=== PATIENT | male | born 1995 | race Caucasian/White ===

== ENCOUNTER 2017-08-30 18:39 | Emergency (ER) | payer MEDICAID ==
[~2017-08-30] VITALS: Ht 172.7 cm; Wt 95.0 kg
[~2017-08-30 18:39] MED LIST: AMOXICILLIN; IBUPROFEN
[2017-08-30 18:58] VITALS: BP 148/94
== END 2017-08-30 23:00 | disposition left against medical advice (07) ==
LOC: ER 19:27
DX: R06.02 Shortness of breath (principal); Z53.21 Procedure and treatment not carried out due to patient leaving prior to being seen by health care provider

== ENCOUNTER 2019-06-19 19:48 | Emergency (ER) | payer MEDICAID | END 2019-06-19 22:11 | disposition left against medical advice (07) | LOC: ER 19:48 | DX: Z53.21 Procedure and treatment not carried out due to patient leaving prior to being seen by health care provider (principal) ==

== ENCOUNTER 2021-04-18 02:55 | Emergency (ER) | payer MEDICAID ==
[~2021-04-18] VITALS: Ht 170.2 cm; Wt 100.0 kg
[2021-04-18] MEDS ORDERED: LEVETIRACETAM 500MG PREMIX 100 ML IV ONE (03:30)
[2021-04-18 04:02] LABS: BASOPHILS % 0.9 % (0.0-2.0); EOSINOPHILS % 5.1 % (0.0-5.0); HEMATOCRIT. 48.3 % (42.0-52.0); HEMOGLOBIN. 16.6 g/dL (14.0-18.0); LYMPHOCYTES % 14.9 % (20.0-50.0); MEAN CORPUSCULAR VOLUME 87.3 fL (80.0-94.0); MEAN PLATELET VOLUME 8.4 fl (7.4-10.4); NEUTROPHILS % 73.1 % (40.0-76.0); PLATELET 339 x1000/uL (130-400); RED BLOOD CELL COUNT 5.53 mill/uL (4.7-6.1); RED CELL DISTRIBUTION WIDTH 12.7 % (11.6-14.6)
[2021-04-18 04:04] LABS: CHLORIDE 105 mEq/L (98-107)
[2021-04-18 04:08] LABS: ETHANOL BLOOD < 10 mg/dL
[2021-04-18 06:01] LABS: *AMPHETAMINES SCREEN URINE NEGATIVE (NEGATIVE); *BARBITURATES SCREEN URINE NEGATIVE (NEGATIVE); *BENZODIAZEPINES SCREEN URINE NEGATIVE (NEGATIVE); *COCAINE SCREEN URINE NEGATIVE (NEGATIVE); METHADONE URINE SCREEN NEGATIVE (NEGATIVE)
[2021-04-18 06:02] LABS: CANNABINOID URINE SCREEN PRESUMTIVE POSITIVE (NEGATIVE); OPIATES URINE SCREEN NEGATIVE (NEGATIVE); PHENCYCLIDINE URINE SCREEN NEGATIVE (NEGATIVE)
[2021-04-18] MEDS ORDERED: LORAZEPAM 2MG/ML CPJ IV ONE (07:00)
[2021-04-18] MEDS ORDERED: LEVETIRACETAM 1000MG PREMIX 100 ML IV ONE (07:15)
[2021-04-18 13:33] VITALS: BP 111/80
== END 2021-04-18 14:00 | disposition home or self-care (01) ==
LOC: ER 02:55
DX: R56.9 Unspecified convulsions (principal); R94.31 Abnormal electrocardiogram [ECG] [EKG]; F12.10 Cannabis abuse, uncomplicated
CPT/HCPCS: 36415; 71045; 80053; 80305; 80320; 83880; 84484; 85025; 93005; 96365; 96366; 96375; 99285; J1953; J2060; G0480

== ENCOUNTER 2021-05-10 06:31 | Emergency (ER) | payer MEDICAID ==
[~2021-05-10] VITALS: Ht 170.2 cm; Wt 106.0 kg
[2021-05-10] MEDS ORDERED: LEVETIRACETAM 500MG PREMIX 100 ML IV ONE (07:15)
[2021-05-10 07:45] LABS: BASOPHILS % 0.6 % (0.0-2.0); CHLORIDE 107 mEq/L (98-107); EOSINOPHILS % 4.6 % (0.0-5.0); HEMATOCRIT. 45.7 % (42.0-52.0); HEMOGLOBIN. 15.5 g/dL (14.0-18.0); LYMPHOCYTES % 11.8 % (20.0-50.0); MEAN CORPUSCULAR HEMOGLOBIN 29.4 pg (28.0-32.0); MEAN CORPUSCULAR VOLUME 86.7 fL (80.0-94.0); MEAN PLATELET VOLUME 8.3 fl (7.4-10.4); MONOCYTES % 5.6 % (2.0-8.0); NEUTROPHILS % 77.4 % (40.0-76.0); PLATELET 277 x1000/uL (130-400); RED BLOOD CELL COUNT 5.27 mill/uL (4.7-6.1); RED CELL DISTRIBUTION WIDTH 12.7 % (11.6-14.6)
[2021-05-10 07:49] LABS: ETHANOL BLOOD < 10 mg/dL
[2021-05-10] MEDS ORDERED: IBUPROFEN 600MG TABLET PO ONE (08:45)
[2021-05-10] MEDS ORDERED: ACETAMINOPHEN 325MG TABLET PO ONE (09:00)
[2021-05-10] MEDS ORDERED: LEVE750T4 MT (10:00)
[2021-05-10 10:04] LABS: CLARITY URINE CLEAR (CLEAR); COLOR URINE YELLOW (YELLOW); KETONES URINE NEGATIVE (NEGATIVE); LEUKOCYTE ESTERASE URINE NEGATIVE (NEGATIVE); NITRITE URINE NEGATIVE (NEGATIVE); OCCULT BLOOD URINE TRACE (NEGATIVE); PROTEIN URINE TRACE (NEGATIVE); SPECIFIC GRAVITY URINE 1.014 (1.005-1.030); UROBILINOGEN URINE 0.2 E.U./dL (0.2-1.0)
[2021-05-10 10:27] LABS: *COCAINE SCREEN URINE NEGATIVE (NEGATIVE); METHADONE URINE SCREEN NEGATIVE (NEGATIVE); OPIATES URINE SCREEN NEGATIVE (NEGATIVE)
[2021-05-10 10:28] LABS: *AMPHETAMINES SCREEN URINE NEGATIVE (NEGATIVE); *BARBITURATES SCREEN URINE NEGATIVE (NEGATIVE); *BENZODIAZEPINES SCREEN URINE NEGATIVE (NEGATIVE); CANNABINOID URINE SCREEN PRESUMTIVE POSITIVE (NEGATIVE); PHENCYCLIDINE URINE SCREEN NEGATIVE (NEGATIVE)
[2021-05-10 11:26] VITALS: BP 101/48
== END 2021-05-10 11:42 | disposition home or self-care (01) ==
LOC: ER 06:42
DX: G40.909 Epilepsy, unspecified, not intractable, without status epilepticus (principal); S05.11XA Contusion of eyeball and orbital tissues, right eye, initial encounter; F17.210 Nicotine dependence, cigarettes, uncomplicated; W01.0XXA Fall on same level from slipping, tripping and stumbling without subsequent striking against object, initial encounter; Y93.89 Activity, other specified; Y92.89 Other specified places as the place of occurrence of the external cause; Y99.8 Other external cause status
CPT/HCPCS: 36415; 70450; 80053; 80305; 80320; 81003; 84484; 85025; 93005; 96374; 99285; J1953; G0480

== ENCOUNTER 2021-05-10 15:21 | Emergency (ER) | payer MEDICAID ==
[~2021-05-10] VITALS: Ht 172.7 cm; Wt 95.0 kg
[~2021-05-10 15:21] MED LIST changes: +LEVE750T4 MT
[2021-05-10] MEDS ORDERED: SODIUM CHLORIDE 0.9% 1,000 ML IV ONE ×2 (15:45→18:45)
[2021-05-10] MEDS ORDERED: LEVETIRACETAM 1000MG PREMIX 100 ML IV ONE (15:45)
[2021-05-10 16:04] LABS: BASOPHILS % 0.6 % (0.0-2.0); HEMATOCRIT. 46.4 % (42.0-52.0); HEMOGLOBIN. 15.3 g/dL (14.0-18.0); LYMPHOCYTES % 11.5 % (20.0-50.0); MEAN CORPUSCULAR VOLUME 87.6 fL (80.0-94.0); MEAN PLATELET VOLUME 8.4 fl (7.4-10.4); MONOCYTES % 9.2 % (2.0-8.0); NEUTROPHILS % 77.7 % (40.0-76.0); PLATELET 296 x1000/uL (130-400); RED BLOOD CELL COUNT 5.29 mill/uL (4.7-6.1); RED CELL DISTRIBUTION WIDTH 12.9 % (11.6-14.6)
[2021-05-10 16:10] LABS: CHLORIDE 106 mEq/L (98-107)
[2021-05-10 16:14] LABS: ETHANOL BLOOD < 10 mg/dL
[2021-05-10] MEDS ORDERED: LORAZEPAM 2MG/ML CPJ IV ONE (17:45)
[2021-05-10] MEDS ORDERED: LORAZEPAM 2MG/ML CPJ ONE (17:57)
[2021-05-10 20:18] LABS: *AMPHETAMINES SCREEN URINE NEGATIVE (NEGATIVE); *BARBITURATES SCREEN URINE NEGATIVE (NEGATIVE); *BENZODIAZEPINES SCREEN URINE NEGATIVE (NEGATIVE)
[2021-05-10 20:19] LABS: *COCAINE SCREEN URINE NEGATIVE (NEGATIVE); CANNABINOID URINE SCREEN PRESUMTIVE POSITIVE (NEGATIVE); METHADONE URINE SCREEN NEGATIVE (NEGATIVE); OPIATES URINE SCREEN NEGATIVE (NEGATIVE); PHENCYCLIDINE URINE SCREEN NEGATIVE (NEGATIVE)
[2021-05-10 22:33] VITALS: BP 116/64
== END 2021-05-10 22:28 | disposition short-term general hospital (02) ==
LOC: ER 15:21
DX: S05.10XA Contusion of eyeball and orbital tissues, unspecified eye, initial encounter (principal); R56.9 Unspecified convulsions; F12.10 Cannabis abuse, uncomplicated; Z79.899 Other long term (current) drug therapy; Z20.822 Contact with and (suspected) exposure to COVID-19; X58.XXXA Exposure to other specified factors, initial encounter; Y93.89 Activity, other specified; Y92.89 Other specified places as the place of occurrence of the external cause; Y99.8 Other external cause status
CPT/HCPCS: 36415; 80053; 80305; 80320; 85025; 87426; 96365; 99285; J1953; J2060; J7030; G0480

== ENCOUNTER 2024-01-04 14:49 | Emergency (ER) | payer MEDICAID, OTHER ==
[~2024-01-04] VITALS: Ht 177.8 cm; Wt 90.0 kg
[2024-01-04 15:01] VITALS: BP 145/90; PULSE 62; RESP 20; TEMP 98.2; O2SAT 100
[2024-01-04] MEDS: FLUORESCEIN SODIUM 1MG/STRIP BOTHEYE ONE (16:10)
[2024-01-04] MEDS: TETRACAINE 0.5% OPHTH DROPS 4ML BOTHEYE ONE (16:10)
[2024-01-04] MEDS ORDERED: ERYT1OIN6 LEFTEYE (16:35)
== END 2024-01-04 16:41 | disposition home or self-care (01) ==
LOC: ER 14:49
DX: H10.32 Unspecified acute conjunctivitis, left eye (principal); Z86.59 Personal history of other mental and behavioral disorders
CPT/HCPCS: 99283